=== PATIENT | female | born 1990 | race Caucasian/White ===

== ENCOUNTER 2016-09-10 10:32 | Emergency (ER) | payer OTHER ==
--- NOTE | 2016-09-10 11:33 | PD ---
HPI Chief Complaint Patient is thinks her water may have leaked no other problems Date Seen: Sep 10, 2016 Travel History International Travel<30 Days: No Contact w/Intl Traveler<30Days: No Known Affected Area: No History of Present Illness HPI Patient is a 25-year-old white female A1 at 31 weeks tomorrow presents for evaluation of possibly leaking fluid. Patient's noticed some leakage through the day. Patient denies bleeding or pain, she is followed by the [facility] clinic Para: 2 : 4 : 1 History Past Medical History Narrative Medical Has a history of herpes type I and 2 Medical History: Denies Significant Hx Obstetric History Obstetric History 2 vaginal deliveries and 1 miscarriage Social History Alcohol Use: No Tobacco Use: No Substance Abuse: No Allergies-Medications Comments NKA on po valtrex now Physical Exam Narrative GENERAL: Well-nourished, well-developed patient. SKIN: Warm and dry. HEAD: Normocephalic and atraumatic. EYES: No scleral icterus. No injection or drainage. ENT: No nasal drainage noted. Mucous membranes pink. Airway patent. NECK: Supple, trachea midline. No JVD. CARDIOVASCULAR: Regular rate and rhythm without murmurs, gallops, or rubs. RESPIRATORY: Breath sounds equal bilaterally. No accessory muscle use. BREASTS: Bilateral exam showed no masses , no retractions, no nipple discharge. ABDOMEN/GI: Abdomen soft, non-tender, bowel sounds present, no rebound, no guarding Gravid to [30-] weeks size Fundal Height: [30-] GENITOURINARY: External Genitalia: intact and normal in appearance BUS glands: [-] Cervix: [-] Not checked today, patient is not saleem or having pain Dilatation: [-] Effacement: [-] Station: [-] Presentation: [-] Membranes: [intact ] amnio sure negative Uterine Contractions: [none-] FHT's: Category: [1-] Baseline: [144-] Reactive: [-yes] Variability: [mod-] Decels: [-none] EXTREMITIES: No cyanosis or edema. BACK: Nontender without obvious deformity. No CVA tenderness. NEUROLOGICAL: Awake and alert. Motor and sensory grossly within normal limits. Five out of 5 muscle strength in all muscle groups. Normal speech. Data Data Labs amnisure neg MDM Interpretation(s) Patient is a 31 week anterior followed by [facility] with complaint of possibly leaking fluid. Her amnio sure is negative today. And she has had no continued leakage, she has no pain or bleeding fetus is active and the heart rate tracing is reactive, no contractions seen Plan Plan to discharge the patient home to observation follow-up with her OB provider Diagnosis Diagnosis: Primary Impression: No leakage of amniotic fluid into vagina Disposition: 01 DISCHARGE HOME Condition: Stable Jere Gallagher II, MD Sep 10, 2016 11:33
== END 2016-09-10 11:41 | disposition home or self-care (01) ==
LOC: HOBED 10:32
DX: O26.93 Pregnancy related conditions, unspecified, third trimester (principal); Z3A.31 31 weeks gestation of pregnancy
CPT/HCPCS: 84112; 99284

== ENCOUNTER 2016-09-19 19:49 | Emergency (ER) | payer OTHER, MEDICAID ==
--- NOTE | 2016-09-19 20:22 | PD ---
HPI Travel History International Travel<30 Days: No Contact w/Intl Traveler<30Days: No Known Affected Area: No History of Present Illness HPI 25-year-old EDC is November 13, 2016 presently at 32 weeks and 1 day she presents with chief complaint of pelvic pressure since yesterday no ruptured membranes no vaginal bleeding no lu contractions the baby is active care with Dr. Figueroa course is unremarkable History Past Medical History Narrative Medical No known drug allergies history of preeclampsia with her 2 previous pregnancies no other medical problems Obstetric History Obstetric History First baby born October 2011 male infant weight 8 lbs. 5 oz. vaginal delivery complicated with preeclampsia Second baby born October 07, 2013 female weight 8 lbs. 5 oz. vaginal delivery complicated with preeclampsia Past Surgical History Narrative Surgical Breast augmentation Dental surgery Family History Narrative Family History Heart disease cancer Social History Alcohol Use: No Tobacco Use: No Substance Abuse: No Allergies-Medications Comments No known drug allergies Review of Systems Gastrointestinal: Abdominal Pain (pressure in the pelvic area), No: Nausea, Vomiting, Diarrhea, Hematemesis, Hematochezia, Constipation, Changes in Bowel Habits, Indigestion, Loss of Appetite, Other Physical Exam Narrative GENERAL: Well-nourished, well-developed patient. Alert oriented 3 and cooperative in no acute distress SKIN: Warm and dry. Multiple tattoos CARDIOVASCULAR: Regular rate and rhythm without murmurs, gallops, or rubs. RESPIRATORY: Breath sounds equal bilaterally. No accessory muscle use. ABDOMEN/GI: Abdomen is gravid consistent with 32 weeks soft nontender no epigastric or right upper no palpable contractions Gravid to [-] weeks size 32 Fundal Height: [-] GENITOURINARY: External Genitalia: intact and normal in appearance BUS glands: [-] Cervix: [-] Cervix is firm posterior Dilatation: [-] 0 Effacement: [-] 0 Station: [-] Ballotable Presentation: [-] Vertex Membranes: [intact or ruptured] Uterine Contractions: [-] 0 FHT's: Category: [-] 1 Baseline: [-]150 Reactive: [-] + Variability: [-] Moderate Decels: [-] 0 EXTREMITIES: No cyanosis or edema. 2+ reflexes NEUROLOGICAL: Awake and alert. Motor and sensory grossly within normal limits. Five out of 5 muscle strength in all muscle groups. Normal speech. Data Data Vital Signs Reviewed: Yes (blood pressures 132/81 pulse is 90 respiration 18 temperature is 98.5) MDM Medical Record Reviewed: No Interpretation(s) 25-year-old at 32 weeks and 1 day Not in labor Pelvic pressure secondary to musculoskeletal discomfort Rule out UTI History of a breast augmentation Narrative Course / MDM Urinalysis culture not indicated We'll discharge patient home Pelvic rest By mouth fluid hydration kick count Appointment with Dr. Vela in 24-48 hours for follow-up Plan External monitoring By mouth fluid hydration Urinalysis Reevaluation Diagnosis Diagnosis: Primary Impression: Musculoskeletal pain Additional Impression: 32 weeks gestation of Disposition: DISCHARGE HOME Condition: Stable Amita Dalton MD Sep 19, 2016 20:22
[2016-09-19 21:18] LABS: BLOOD, URINE NEG (NEG); COMMENT (UR) CULT NOT INDICATED; CULTURE IF INDICATED CULT NOT INDICATED; GLUCOSE,URINE NEG (NEG); KETONE, URINE NEG (NEG); MUCUS URINE FEW /lpf (OCC); NITRITE,URINE NEG (NEG); PH, URINE 5.5 (5.0-8.5); SQUAMOUS EPITHELIAL CELL URINE 7 /hpf (0-5); URINE COLOR YELLOW (YELLW/STRAW)
== END 2016-09-19 23:19 | disposition home or self-care (01) ==
LOC: HOBED 19:49
DX: O26.893 Other specified pregnancy related conditions, third trimester (principal); M79.1 Myalgia; Z3A.32 32 weeks gestation of pregnancy
CPT/HCPCS: 59025; 81001

== ENCOUNTER 2016-11-05 17:05 | Emergency (ER) | payer OTHER ==
--- NOTE | 2016-11-05 18:29 | PD ---
HPI Chief Complaint back pain Date Seen: Nov 05, 2016 Time Seen: 18:00 Travel History International Travel<30 Days: No Contact w/Intl Traveler<30Days: No Known Affected Area: No History of Present Illness HPI Pt is a 25 y/o with IUP at 38.6 weeks presents with complaint of lower back pain since yesterday. Pt states back pain is constant, but intermittently wraps around sides. Pt reports feeling irregular contractions. denies vb, lof. +FM reports loss of mucous plug on Saturday but minimal discharge since Para: 2 : 4 Miscarriage: 1 History Past Medical History Narrative Medical headaches, h/o HSV Obstetric History Obstetric History 2011 FTSVD 2013 FTSVD Past Surgical History Surgical History: No Previous Surgery Family History Family History: Negative Social History Alcohol Use: No Tobacco Use: No Substance Abuse: No Allergies-Medications (Allergen,Severity, Reaction): Coded Allergies: No Known Allergies (Unverified , 11/05/16) Narrative Medication vitamin fioricet valtrex Review of Systems General / Constitutional: No: Fever, Weight Gain, Weight Loss, Chills, Other Eyes: No: Diploplia, Blurred Vision, Visual changes, Pain, Photophobia, Other HENT: No: Headaches, Vertigo, Dental Difficulties, Lightheadedness, Other Cardiovascular: No: Irregular Rhythm, Chest Pain or Discomfort, Palpitations, Tachycardia, Syncope, Varicosities, Edema, Cyanosis, Other Respiratory: No: Cough, Short of Breath, Wheezing, Other Gastrointestinal: No: Nausea, Vomiting, Diarrhea, Abdominal Pain, Hematemesis, Hematochezia, Constipation, Changes in Bowel Habits, Indigestion, Loss of Appetite, Other Genitourinary: No: Urgency, Frequency, Dysuria, Nocturia, Hematuria, Decreased Urinary Output, Oliguria, Hesitancy, Dribbling, Incontinence, Pelvic Pain, Dyspareunia, Discharge, Menorrhagia, Vaginal Bleeding, Other Musculoskeletal: Pain Skin: No Rash, No Itching, No Dryness, No Lumps, No Change in Pigmentation, No Change in Nails, No Alopecia, No Lesions, No Breast Lumps, No Breast Tenderness , No Breast Swelling, No Other Neurologic: No: Weakness, Dizziness, Syncope, Focal Abnormalities, Coordination Problem, Headache, Slurred Speech, Seizures, Other Psychiatric: No: Anxiety, Depression, Suicidal Ideations, Disorder of Thought, Mood Disorder, Substance Abuse, Homicidal Ideation, Other Endocrine: No: Heat Intolerance, Cold Intolerance, Polydipsia, Polyuria, Other Hematologic/Lymphatic: No Easy Bruising, No Lymph Node Enlargement, No Other Physical Exam reviewed, see OBtrace Narrative GENERAL: Well-nourished, well-developed patient. SKIN: Warm and dry. HEAD: Normocephalic and atraumatic. EYES: No scleral icterus. No injection or drainage. ENT: No nasal drainage noted. Mucous membranes pink. Airway patent. NECK: Supple, trachea midline. No JVD. CARDIOVASCULAR: Regular rate and rhythm without murmurs, gallops, or rubs. RESPIRATORY: Breath sounds equal bilaterally. No accessory muscle use. ABDOMEN/GI: Abdomen soft, non-tender, bowel sounds present, no rebound, no guarding Gravid GENITOURINARY: External Genitalia: intact and normal in appearance BUS glands: [wnl] Cervix: posterio Dilatation: 1-2 Effacement: thick Station: high Presentation: ceph Membranes: intact Uterine Contractions: irregular FHT's: Category: 1 Baseline: 140 Reactive: yes Variability: mod Decels: no EXTREMITIES: No cyanosis or edema. BACK: Nontender without obvious deformity. No CVA tenderness. NEUROLOGICAL: Awake and alert. Motor and sensory grossly within normal limits. Five out of 5 muscle strength in all muscle groups. Normal speech. Data Data Vital Signs Reviewed: Yes [facility] Medical Record Reviewed: Yes ( reviewed) Narrative Course / MDM 25 y/o with IUP at 38.6 wks with low back pain --musculoskeletal pain of --no evidence of active labor --cat 1 tracing Supportive measures d/w pt--tylenol, heat/ice, massage reviewed s/sx labor Diagnosis Diagnosis: Primary Impression: Musculoskeletal pain Additional Impression: 38 weeks gestation of Disposition: 01 DISCHARGE HOME Condition: Stable Yobany Jones MD Nov 05, 2016 18:29
--- NOTE | 2016-11-07 13:49 | MH ---
cc: EDLL FIGUEROA MD DATE OF ADMISSION: 11/05/2016 HISTORY OF PRESENT ILLNESS She is [id number], 3, para 2, intrauterine at 39 weeks and one day complaining of scotomata. Blood pressure is 128/66. She has a history of preeclampsia x2, previous induction of labor with her last two pregnancies. care has been with [facility]. Her group-B strep is negative. Her gestational diabetes was negative. PAST OB HISTORY Significant for two vaginal deliveries, 8 and 1/2 pounds x2. PAST [facility] HISTORY She has a history of genital herpes, has been on Valtrex suppression. PAST MEDICAL HISTORY She has a history of high blood pressure in . PAST SURGICAL HISTORY She denies. SOCIAL HISTORY She denies toxic habits. MEDICATIONS 1. Fioricet as needed for headaches. 2. Valtrex suppression. 3. Benadryl as needed. ALLERGIES She has no known drug allergies. PHYSICAL EXAMINATION VITAL SIGNS: Stable. She is afebrile. Blood pressure is 128/66. She is 225 pounds. +1 protein on the urine dip. HEAD, HEART, CHEST, LUNGS: Within normal limits. ABDOMEN: Soft, nontender, gravid. CERVIX: Her cervical exam is 1 cm dilated, 50% effaced. ASSESSMENT AND PLAN She is [id number], 3, para 2, intrauterine at 39 weeks and one day. History of preeclampsia, complaining of scotomata. The risks, benefits and alternatives of the Cervidil induction have been explained to her again. Again her group-B strep is negative. All her questions have been answered. Dell Figueroa MD CKBritney/BETH /1:18 PM /1:34 PM
== END 2016-11-05 19:05 | disposition home or self-care (01) ==
LOC: HOBED 17:05
DX: O26.893 Other specified pregnancy related conditions, third trimester (principal); M54.5 Low back pain; M79.1 Myalgia; Z3A.38 38 weeks gestation of pregnancy
CPT/HCPCS: 59025

== ENCOUNTER 2016-11-07 17:57 | Inpatient (IN) | payer OTHER, MEDICAID ==
[~2016-11-07] VITALS: Ht 175.3 cm; Wt 102.1 kg
[2016-11-07] MEDS: LACTATED RINGER'S 1000 ML INJ 1,000 ML IV SCH (19:00)
[2016-11-07 19:23] VITALS: BP 115/65; PULSE 88
[2016-11-07 19:25] VITALS: RESP 18; TEMP 98.1
[2016-11-07] MEDS ORDERED: LACTATED RINGER'S 1000 ML INJ 1,000 ML IV PRN (20:44)
[2016-11-07] MEDS ORDERED: LIDOCAINE HCL 1% 50 ML VIAL I-DERMAL PRN ×2 (20:45)
[2016-11-07] MEDS ORDERED: LIDOCAINE HCL 1% 50 ML VIAL INFIL PRN ×2 (20:45)
[2016-11-07] MEDS ORDERED: NS 500 ML BOLUS IV PRN (20:45)
[2016-11-07] MEDS ORDERED: NS 1000 ML IV PRN (20:45)
[2016-11-07] MEDS ORDERED: MINERAL OIL 10 ML VIAL TOPICAL PRN (20:45)
[2016-11-07] MEDS ORDERED: OXYTOCIN 30 UNITS-500ML PREMIX 500 ML IV ONE (20:45)
[2016-11-07] MEDS ORDERED: MINERAL OIL 10 ML VIAL TOP PRN (20:45)
[2016-11-07] MEDS ORDERED: CITRIC ACID-SODIUM CITRATE LIQ 30 ML UDC PO SCH ×2 (20:45)
[2016-11-07] MEDS ORDERED: OXYTOCIN 30 UNITS 500ML PREMIX IV ONE (20:45)
[2016-11-07] MEDS ORDERED: LACTATED RINGER'S 1000 ML IV SCH (20:45)
[2016-11-07] MEDS ORDERED: SODIUM CHLORID 0.9% 500 ML INJ 500 ML IV PRN (20:45)
[2016-11-07] MEDS ORDERED: LACTATED RINGER'S 1000 ML BOLUS IV PRN (20:45)
[2016-11-07] MEDS ORDERED: ONDANSETRON HCL 4 MG/2 ML VIAL IV PRN (20:45)
--- NOTE | 2016-11-07 20:50 | HHI.HP ---
HPI Chief Complaint induction for hx pre eclampsia Date Seen: Nov 07, 2016 Time Seen: 20:46 Travel History International Travel<30 Days: No Contact w/Intl Traveler<30Days: No Known Affected Area: No History of Present Illness HPI 25 yo mwf P2 at 39 1/7 admitted for induction by Dr. Figueroa. Evaluated by me now before placing orders. Cervix 3/80/-2 No DEJESUS, N, V, RUQT, blurred vision. No leaking, bleeding. GFM. Normotensive tonight. GBS - Para: 2 History Past Medical History Medical History: Denies Significant Hx Obstetric History Obstetric History two term proven to 8 5 Past Surgical History Surgical History: No Previous Surgery Family History Family History: Negative Social History Alcohol Use: No Tobacco Use: No Substance Abuse: No Allergies-Medications (Allergen,Severity, Reaction): Coded Allergies: No Known Allergies (Unverified , 11/07/16) Physical Exam Vital Signs Date Time Temp Pulse Resp B/P Pulse Ox O2 Delivery O2 Flow Rate FiO2 11/07/16 19:25 98.1 18 11/07/16 19:23 88 115/65 Narrative GENERAL: Well-nourished, well-developed patient. SKIN: Warm and dry. HEAD: Normocephalic and atraumatic. EYES: No scleral icterus. No injection or drainage. ENT: No nasal drainage noted. Mucous membranes pink. Airway patent. NECK: Supple, trachea midline. No JVD. CARDIOVASCULAR: Regular rate and rhythm without murmurs, gallops, or rubs. RESPIRATORY: Breath sounds equal bilaterally. No accessory muscle use. BREASTS: Bilateral exam showed no masses , no retractions, no nipple discharge. ABDOMEN/GI: Abdomen soft, non-tender, bowel sounds present, no rebound, no guarding term fundus EFW 8 pelvis clinically adequate 3/80/-2 arom clear 1/4 DTRs mild edema EXTREMITIES: No cyanosis or edema. BACK: Nontender without obvious deformity. No CVA tenderness. NEUROLOGICAL: Awake and alert. Motor and sensory grossly within normal limits. Five out of 5 muscle strength in all muscle groups. Normal speech. Data Data Orders Diet Regular Basic (11/07/16 Dinner) Admit To Inpatient (11/07/16 ) Vital Signs (Adult) .Per protocol (11/07/16 19:22) Activity Oob Ad Shraddha (11/07/16 19:22) ^ Heart (11/07/16 19:22) ^ Amnioinfusion (11/07/16 19:22) Urinary Catheter Management .ONCE (11/07/16 19:22) Complete Blood Count With Diff (11/07/16 19:22) Hold Clot (11/07/16 19:22) Abo/Rh Blood Type (11/07/16 19:22) Urinalysis - C+S If Indicated (11/07/16 19:22) Resp Oxygen Non Rebreathe Mask (11/07/16 ) ^ Epidural / Intrathecal Infus (11/07/16 19:22) Comprehensive Metabolic Panel (11/07/16 20:08) Lactated Ringer's 1000 Ml Inj (Lr 1000 M (11/07/16 20:45) Lactated Ringer's 1000 Ml Inj (Lr 1000 M (11/07/16 20:45) Sodium Chlorid 0.9% 500 Ml Inj (Ns 500 M (11/07/16 20:45) Sodium Chlor 0.9% 1000 Ml Inj (Ns 1000 M (11/07/16 20:45) Lidocaine 1% Inj (50 Ml) (Xylocaine 1% I (11/07/16 20:45) Ondansetron Inj (Zofran Inj) (11/07/16 20:45) Citric Acid-Sodium Citrate Liq (Bicitra (11/07/16 20:45) Oxytocin 30 Units-500ml Premix (Pitocin (11/07/16 20:45) Fentanyl Inj (Fentanyl Inj) (11/07/16 20:45) Fentanyl Inj (Fentanyl Inj) (11/07/16 20:45) Lidocaine 1% Inj (50 Ml) (Xylocaine 1% I (11/07/16 20:45) Light Mineral Oil (Muri-Lube Oil) (11/07/16 20:45) Admit To Inpatient (11/07/16 ) Vital Signs (Adult) .Per protocol (11/07/16 20:44) ^ Heart (11/07/16 20:44) ^ Amnioinfusion (11/07/16 20:44) Urinary Catheter Management .ONCE (11/07/16 20:44) Lactated Ringer's 1000 Ml Inj (Lr 1000 M (11/07/16 20:44) Lactated Ringer's 1000 Ml Inj (Lr 1000 M (11/07/16 20:44) Sodium Chlorid 0.9% 500 Ml Inj (Ns 500 M (11/07/16 20:45) Sodium Chlor 0.9% 1000 Ml Inj (Ns 1000 M (11/07/16 21:04) Lidocaine 1% Inj (50 Ml) (Xylocaine 1% I (11/07/16 20:45) Citric Acid-Sodium Citrate Liq (Bicitra (11/07/16 20:45) Fentanyl Inj (Fentanyl Inj) (11/07/16 20:45) Fentanyl Inj (Fentanyl Inj) (11/07/16 20:45) Resp Oxygen Non Rebreathe Mask (11/07/16 ) ^ Epidural / Intrathecal Infus (11/07/16 20:44) Oxytocin 30 Units-500ml Premix (Pitocin (11/07/16 20:45) Lidocaine 1% Inj (50 Ml) (Xylocaine 1% I (11/07/16 20:45) Light Mineral Oil (Muri-Lube Oil) (11/07/16 20:45) ^ Non Stress Test (11/07/16 20:44) Response To Medication .Post New Med Administration, Reaction (11/07/16 20:44) ^ Discontinue Medication (11/07/16 20:44) Inpatient Certification (11/07/16 ) Assessment/Plan Assessment and Plan HIP in office normotensive here hx pre eclampsia x 2 anticipate Ghazal Abebe MD Nov 07, 2016 20:50
[2016-11-07 20:59] VITALS: BP 134/72; PULSE 98
[2016-11-07] MEDS ORDERED: SODIUM CHLOR 0.9% 1000 ML INJ 1,000 ML IV PRN (21:04)
[2016-11-07 21:19] LABS: AUTOMATED NEUTROPHIL # 8.1 TH/MM3 (1.8-7.7); BASOPHIL % 0.3 % (0.0-2.0); EOSINOPHIL # 0.1 TH/MM3 (0-0.4); EOSINOPHIL % 0.8 % (0.0-4.0); HEMATOCRIT 29.9 % (35.0-46.0); HEMO FLAGS DIFF FINAL; LYMPH % 17.5 % (9.0-44.0); LYMPHOCYTE # 1.9 TH/MM3 (1.0-4.8); MEAN CELL VOLUME 85.1 FL (80.0-100.0); MEAN CORPUSCULAR HEMOGLOBIN 29.6 PG (27.0-34.0); MEAN CORPUSCULAR HGB CONC 34.8 % (32.0-36.0); NEUT % 75.4 % (16.0-70.0); PLATELET COUNT 216 TH/MM3 (150-450); RED BLOOD COUNT 3.51 MIL/MM3 (4.00-5.30); RED CELL DISTRIBUTION WIDTH 12.4 % (11.6-17.2); WHITE BLOOD COUNT 10.7 TH/MM3 (4.0-11.0)
[2016-11-07 21:23] LABS: BLOOD, URINE SMALL (NEG); COMMENT (UR) CULTURE INDICATED; CULTURE IF INDICATED CULTURE INDICATED; GLUCOSE,URINE NEG (NEG); KETONE, URINE 10 mg/dL (NEG); MUCUS URINE FEW /lpf (OCC); NITRITE,URINE NEG (NEG); SQUAMOUS EPITHELIAL CELL URINE 18 /hpf (0-5); URINE COLOR YELLOW (YELLW/STRAW)
[2016-11-07 21:41] LABS: ALT (GPT) 17 U/L (10-53); ANION GAP 9 MEQ/L (5-15); AST (GOT) 11 U/L (15-37); BICARBONATE 23.3 MEQ/L (21.0-32.0); BLOOD UREA NITROGEN 9 MG/DL (7-18); CHLORIDE 106 MEQ/L (98-107); GLOMERULAR FILTRATION RATE 129 ML/MIN (>89); POTASSIUM 3.4 MEQ/L (3.5-5.1); SODIUM (NA) 138 MEQ/L (136-145)
[2016-11-07 21:44] LABS: ALKALINE PHOSPHATASE 130 U/L (45-117); TOTAL BILIRUBIN ADULT 0.2 MG/DL (0.2-1.0)
[2016-11-07 23:23] VITALS: BP 130/69; PULSE 91
[2016-11-07 23:24] VITALS: TEMP 98.2
[2016-11-07 23:26] VITALS: RESP 18
[2016-11-08] VITALS (75 sets, daily range): BP systolic 90–140; BP diastolic 41–87; PULSE 73–191; RESP 16–20; TEMP 97.2–98.9
[2016-11-08] MEDS: ACETAMINOPHEN 325 MG TAB PO PRN ×2 (00:01→12:34)
[2016-11-08] MEDS ORDERED: OXYTOCIN 30 UNITS/NS 500ML PREMIX IV SCH (03:45)
[2016-11-08] MEDS ORDERED: fentaNYL 2MCG-BUPIV 0.125% INJ 100 ML ONE (03:52)
[2016-11-08] MEDS ORDERED: ePHEDrine/NS 25 MG/5 ML SYR ONE (03:52)
[2016-11-08] MEDS: LACTATED RINGER'S 1000 ML INJ 1,000 ML IV SCH ×2 (04:00)
[2016-11-08] MEDS ORDERED: DO NOT ADMINISTER ANTICOAGULANTS XX PRN (07:00)
[2016-11-08] MEDS ORDERED: NO SYSTEM NARCOTICS XX PRN (07:00)
[2016-11-08] MEDS ORDERED: ePHEDrine/NS 25 MG/5 ML SYR IV PRN (07:00)
[2016-11-08] MEDS ORDERED: fentaNYL 2MCG-BUPIV 0.125% 100 ML EPIDURAL SCH (07:00)
--- NOTE | 2016-11-08 09:46 | PD.OB.DELI ---
Anesthesia: Epidural Episiotomy: None Vaginal Delivery: Normal Presentation: Occiput anterior Nuchal Cord: None Delayed cord clamping (45 sec): Yes Infant: Female One Minute : 9 Five Minute : 9 Weight: 8 Infant Care: Suctioned, Spontaneous crying Placenta: Spontaneous delivery, Intact, 3 vessel cord Laceration: No lacerations Ghazal Gibbs MD Nov 08, 2016 09:46
[2016-11-08] MEDS ORDERED: ONDANSETRON ODT 4 MG TAB PO PRN (10:00)
[2016-11-08] MEDS ORDERED: BENZOCAINE 20% TOPICAL SPRAY 60 ML CAN TOPICAL PRN (10:00)
[2016-11-08] MEDS ORDERED: ACETAMINOPHEN 325 MG TAB PO PRN (10:00)
[2016-11-08] MEDS ORDERED: SODIUM CHLORIDE 0.9% FLUSH 5 ML FLUSH IV PRN (10:00)
[2016-11-08] MEDS ORDERED: ZOLPIDEM TARTRATE 5 MG TAB PO PRN (10:00)
[2016-11-08] MEDS ORDERED: ALUMINUM/MAGNESIUM/SIMETH 30 ML CUP PO PRN (10:00)
[2016-11-08] MEDS ORDERED: DOCUSATE SODIUM 50 MG/SENNA 8.6 MG TAB PO PRN (10:00)
[2016-11-08] MEDS ORDERED: WITCH HAZEL 50%/GLYCERIN 12.5% 40 PAD JAR TOPICAL PRN (10:00)
[2016-11-08] MEDS ORDERED: MEASLES, MUMPS, RUBELLA VACCINE 0.5 ML VIAL SQ ONE (16:00)
[2016-11-08] MEDS ORDERED: DIPHTH/TETANUS/ACEL PERTUSSIS (BOOSTER) 0.5 ML VIAL/PFS IM ONE (16:00)
[2016-11-08] MEDS: IBUPROFEN 600 MG TAB PO PRN (18:06)
[2016-11-08] MEDS ORDERED: SODIUM CHLORIDE 0.9% FLUSH 5 ML FLUSH IV SCH (21:00)
[2016-11-09] MEDS: IBUPROFEN 600 MG TAB PO PRN ×2 (00:07→09:10)
[2016-11-09 07:30] VITALS: BP 121/68; PULSE 88; RESP 18; TEMP 98.2
--- NOTE | 2016-11-09 07:55 | HHI.OB ---
Subjective Post Day: 1 Remarks doing well, seen by Dr. Jarquin Objective Vitals/I&O Vital Signs Date Time Temp Pulse Resp B/P Pulse Ox O2 Delivery O2 Flow Rate FiO2 11/08/16 20:05 97.2 11/08/16 20:05 73 16 121/68 11/08/16 11:50 98.9 11/08/16 11:50 20 11/08/16 11:45 84 11/08/16 11:45 125/69 11/08/16 10:35 16 11/08/16 10:35 90 134/60 11/08/16 10:35 98.0 11/08/16 10:31 97 139/62 11/08/16 10:01 20 11/08/16 10:00 101 138/62 11/08/16 09:50 20 11/08/16 09:45 106 125/87 11/08/16 09:32 191 120/60 11/08/16 09:30 99 11/08/16 09:25 95 11/08/16 09:20 101 11/08/16 09:15 93 11/08/16 09:15 103 131/57 11/08/16 09:10 97 11/08/16 09:05 99 11/08/16 09:00 107 123/65 11/08/16 09:00 97 11/08/16 08:55 98 11/08/16 08:50 100 11/08/16 08:45 97 11/08/16 08:40 105 11/08/16 08:35 102 11/08/16 08:30 104 113/74 11/08/16 08:30 105 11/08/16 08:30 16 11/08/16 08:25 107 11/08/16 08:20 99 11/08/16 08:15 107 132/66 11/08/16 08:15 99 11/08/16 08:10 97 11/08/16 08:05 102 11/08/16 08:00 102 11/08/16 08:00 100 125/67 Objective Remarks GENERAL: Well-nourished, well-developed patient. CARDIOVASCULAR: Regular rate and rhythm without murmurs, gallops, or rubs. RESPIRATORY: Breath sounds equal bilaterally. No accessory muscle use. ABDOMEN/GI: Abdomen soft, non-tender. Fundus: Firm, non-tender at umbilicus. GENITOURINARY: Light to moderate bleeding. EXTREMITIES: No cyanosis or edema, non-tender, without signs of DVT. Medications and IVs Current Medications Medications (Trade) Dose Ordered Sig/Len Route Start Time Stop Time Status Last Admin Ondansetron HCl 4 mg 4 mg Q6H PRN IV 11/07/16 20:45 11/08/16 06:15 Lactated Ringer's 1,000 ml @ 125 mls/hr Q8H IV 11/07/16 20:44 11/08/16 04:00 Lactated Ringer's 1,000 ml @ 3,000 mls/hr Q20M PRN IV 11/07/16 20:44 (NS 1000 ml Inj) 1,000 ml @ 100 mls/hr Q10H PRN IV 11/07/16 21:04 (Muri-Lube Oil) 10 ml UNSCH PRN TOPICAL 11/07/16 20:45 Acetaminophen 650 mg 650 mg Q4H PRN PO 11/07/16 23:45 11/08/16 12:34 Oxytocin 500 ml @ 0 mls/hr TITRATE IV 11/08/16 03:45 11/08/16 03:42 (fentaNYL 2MCG-BUPIV 0.125% INJ) 100 ml @ 0 mls/hr TITRATE EPIDURAL 11/08/16 07:00 (NS Flush) 2 ml BID IV 11/08/16 21:00 (NS Flush) 2 ml UNSCH PRN IV 11/08/16 10:00 (Tylenol) 650 mg Q4H PRN PO 11/08/16 10:00 (Motrin) 600 mg Q6H PRN PO 11/08/16 10:00 11/09/16 00:07 (Americaine 20% Top Spr) 1 spray Q4H PRN TOPICAL 11/08/16 10:00 (Tucks Pads) 1 applic QID PRN TOPICAL 11/08/16 10:00 (Terra-Colace) 2 tab Q12H PRN PO 11/08/16 10:00 (Ambien) 5 mg HS PRN PO 11/08/16 10:00 (Mag-Al Plus Susp Liq) 15 ml Q8H PRN PO 11/08/16 10:00 (Zofran Odt) 4 mg Q6H PRN PO 11/08/16 10:00 Assessment/Plan Assessment and Plan PPD 1 - cont routine care possible d/c today if ready Discharge Planning routine Candace Tidwell MD Nov 09, 2016 07:55
[2016-11-09] MEDS ORDERED: IBUP-232 PO (08:09)
--- NOTE | 2016-11-09 08:09 | HHI.DCPOC ---
Discharge Care Plan Diagnosis: (1) (spontaneous vaginal delivery) Your Health Problems Are: Vaginal delivery Report Symptoms to Your Doctor -Temperate above 100.5 degrees -Redness, of incision or excessive or foul smelling drainage -Unusual pain or calf pain -Increased vaginal bleeding -Painful or difficulty urinating -Feelings of extreme sadness or anxiety after 2 weeks Goals to Promote Your Health * To prevent worsening of your condition and complications * To maintain your health at the optimal level Directions to Meet Your Goals Take your medications as prescribed Follow your dietary instruction Follow activity as directed Ensure plenty of rest for recovery Drink fluids for hydration Keep your appointments as scheduled Take your immunizations and boosters as scheduled If your symptoms worsen call your PCP, if no PCP go to Urgent Care Center or Emergency Room Smoking is Dangerous to Your Health. Avoid second hand smoke Call the 24-hour crisis hotline for domestic abuse at Candace Tidwell MD Nov 09, 2016 08:09
== END 2016-11-09 17:19 | disposition home or self-care (01) | DRG 775 ==
LOC: H2EB 17:57 → H1EA 11-08 11:39
PROVIDERS: ADMIT Obstetrics & Gynecology; ATTEND Obstetrics & Gynecology
PROC: 10907ZC Drainage of Amniotic Fluid, Therapeutic from Products of Conception, Via Natural or Artificial Opening (ICD-10-PCS; 2016-11-07)
PROC: 3E033VJ Introduction of Other Hormone into Peripheral Vein, Percutaneous Approach (ICD-10-PCS; 2016-11-07)
PROC: 10E0XZZ Delivery of Products of Conception, External Approach (ICD-10-PCS; principal; 2016-11-08)
PROC: 3E0S3CZ (ICD-10-PCS; 2016-11-08)
PROC: 00HU33Z Insertion of Infusion Device into Spinal Canal, Percutaneous Approach (ICD-10-PCS; 2016-11-08)
DX: O14.94 Unspecified pre-eclampsia, complicating childbirth (principal); Z37.0 Single live birth; Z3A.39 39 weeks gestation of pregnancy
CPT/HCPCS: 59025; 80053; 81001; 85025; 86900; 86901; 87086; J2405; J2590; J7120